=== PATIENT | female | born 1990 ===

== ENCOUNTER 2017-11-11 15:14 | Emergency (ER) | payer BC ==
[2017-11-11 15:27] VITALS: RESP 18
--- NOTE | 2017-11-11 16:39 | ED PDOC ---
HPI: Back Time Seen by Provider: 11/11/17 15:32 Chief Complaint (Nursing): Back Pain Chief Complaint (Provider): back pain History Per: Patient History/Exam Limitations: no limitations Onset/Duration Of Symptoms: Days (x3) Current Symptoms Are (Timing): Still Present Exacerbating Factor(s): Movement Additional Complaint(s): Ana Freed, a 27 year old female with history of pyelonephritis, presents to the emergency department with left sided back pain. Patient describes the pain as sharp and rates it a 7/10. She states that her symptoms are similar to those last year when she had pyelonephritis. Patient reports taking 500mg of Ibuprofen for pain, last dose around 13:30. She states that the pain makes her shake when she walks but denies nausea, vomiting, fever, chills, shortness of breath, cough, abdominal pain, incontinence, urinary symptoms, hematuria, numbness, saddle anesthesia, weakness, or prior injury/surgery to her back. PMD: none Past Medical History Reviewed: Historical Data, Nursing Documentation, Vital Signs Vital Signs: Last Vital Signs Temp 98.2 F 11/11/17 15:25 Pulse 79 11/11/17 15:25 Resp 18 11/11/17 15:25 BP 147/83 11/11/17 15:25 Pulse Ox 99 11/11/17 15:25 - Medical History PMH: No Chronic Diseases Denies: Kidney Stones - Surgical History Surgical History: No Surg Hx - Family History Family History: States: Unknown Family Hx - Home Medications Home Medications: Ambulatory Orders Medication Instructions Recorded Cyclobenzaprine [Cyclobenzaprine 10 mg PO Q8 PRN #12 tab 11/11/17 HCl] Naproxen 500 mg PO BID PRN #20 tab 11/11/17 - Allergies Allergies/Adverse Reactions: Allergies Allergy/AdvReac Type Severity Reaction Status Date / Time No Known Allergies Allergy Verified 11/11/17 15:25 Review of Systems ROS Statement: Except As Marked, All Systems Reviewed And Found Negative Constitutional: Negative for: Fever, Chills Respiratory: Negative for: Cough, Shortness of Breath Gastrointestinal: Negative for: Nausea, Vomiting, Abdominal Pain, Diarrhea Genitourinary Female: Negative for: Incontinence Musculoskeletal: Positive for: Back Pain Neurological: Negative for: Weakness, Numbness Physical Exam - Reviewed Nursing Documentation Reviewed: Yes Vital Signs Reviewed: Yes - Physical Exam Comments: GENERAL APPEARANCE: Patient is awake, alert, oriented x 3, in no acute distress. Resting comfortably. SKIN: Warm, dry; (-) cyanosis. EYES: (-) conjunctival pallor. ENMT: Mucous membranes moist. Airway patent, (-) stridor. NECK: Supple, FROM (-) tenderness, (-) stiffness, (-) lymphadenopathy. CHEST AND RESPIRATORY: (-) rales, (-) rhonchi, (-) wheezes; breath sounds equal bilaterally. Respirations even and nonlabored, speakingin full sentences. HEART AND CARDIOVASCULAR: (-) irregularity ABDOMEN AND GI: Soft; (-) tenderness (-) CVA tenderness (-) distention (-) guarding BACK: (+)bilateral paralumbar tenderness, (-)spasm, (-) direct bony tenderness , (-) deformity. Straight leg raising (-) bilaterally. EXTREMITIES: (-) deformity. Distal pulses good bilaterally. NEURO AND PSYCH: Mental status as above. Intact sensation bilaterally; normal strength in extension of the knees, plantar and dorsiflexion of the toes. Gait: steady. Speech: clear. - Laboratory Results Urine POC: Negative - ECG O2 Sat by Pulse Oximetry: 99 (RA) Pulse Ox Interpretation: Normal Medical Decision Making Medical Decision Making: Time: 15:32 Impression: acute back pain, concern for UTI/pyelonephritis Initial Plan: -- test --ED urine dipstick --Urinalysis --Re-evaluation Upreg: Negative 1755 U/A reviewed (+) hematuria CT abd/pel without contrast ordered to rule out renal colic. 1914 Toradol 30mg IM administered for additional pain control. Pending CT evaluation. [address] 2039 EXAM: CT Abdomen and Pelvis Without Intravenous Contrast CLINICAL HISTORY: 27 years old, female; Pain; Abdominal pain; Generalized; Additional info: R/O renal stone (+) hematuria (+) back/flank pain TECHNIQUE: Axial computed tomography images of the abdomen and pelvis without intravenous contrast. All CT scans at this facility use at least one of these dose optimization techniques: automated exposure control; mA and/or kV adjustment per patient size (includes targeted exams where dose is matched to clinical indication); or iterative reconstruction. COMPARISON: No relevant prior studies available. FINDINGS: Lung bases: Calcified granuloma left lower lobe. ABDOMEN: Liver: Fatty infiltration of the liver. Gallbladder and bile ducts: Probable sludge in the gallbladder. No calcified stones. No ductal dilation. Pancreas: Unremarkable. No ductal dilation. Spleen: Unremarkable. No splenomegaly. Adrenals: Unremarkable. No mass. Kidneys and ureters: Unremarkable. No stones in either kidney or ureter and no hydronephrosis. Stomach and bowel: Unremarkable. No obstruction. No mucosal thickening. PELVIS: Appendix: Normal appendix. Bladder: Unremarkable. No stones. Reproductive: Unremarkable as visualized. ABDOMEN and PELVIS: Intraperitoneal space: Unremarkable. No free air. No significant fluid collection. Bones/joints: No acute fracture. No dislocation. Soft tissues: Unremarkable. Vasculature: Unremarkable. No abdominal aortic aneurysm. Lymph nodes: Unremarkable. No enlarged lymph nodes. IMPRESSION: 1. No stones in either kidney or ureter and no hydronephrosis. 2. Probable sludge in the gallbladder. Thank you for allowing us to participate in the care of your patient. Dictated and Authenticated by: Kin Blount MD 11/11/2017 8:30 PM Eastern Time ([place] & [place]) Diagnostics discussed with patient with demonstrated understanding. Patient states that she is currently spotting and her period is normally irregular. On re-evaluation, patient reports improvement of symptoms. On exam, patient remains AAOx3, in no acute distress. On exam, neck is supple, lungs CTA, cardiac RRR, abdomen is soft and non-tender, neuro exam shows no focal findings. VSS, stable for discharge. Diagnostic results d/w the patient in great detail. Dx of acute back pain, musculoskeletal back pain d/w the patient. Based on history, exam and diagnostic results plan will be for discharge and outpatient follow up. Advised to follow up with primary care physician/PMD in 1-2 days without fail. Advised to take medication as prescribed. Return to the emergency room at any time for any new or worsening symptoms. Patient states she fully agrees with and understands discharge instructions. States that she agrees with the plan and disposition. Verbalized and repeated discharge instructions and plan. I have given the patient opportunity to ask any additional questions. Scribe Attestation: Documented by Nereyda Pineda, acting as a scribe for Ni Hinton PA-C. Provider Scribe Attestation: All medical record entries made by the Scribe were at my direction and personally dictated by me. I have reviewed the chart and agree that the record accurately reflects my personal performance of the history, physical exam, medical decision making, and the department course for this patient. I have also personally directed, reviewed, and agree with the discharge instructions and disposition. Disposition - Clinical Impression Clinical Impression: Acute back pain, Low back pain - Patient ED Disposition Is Patient to be Admitted: No Counseled Patient/Family Regarding: Studies Performed, Diagnosis, Need For Followup, Rx Given - Disposition Referrals: Leobardo Carrera MD [Staff Provider] - [facility] [Outside] Disposition: Routine/Home Disposition Time: 20:42 Condition: STABLE Additional Instructions: The emergency medical care you received today was directed at your acute symptoms. If you were prescribed any medication, please fill it and take as directed. It may take several days for your symptoms to resolve. Return to the Emergency Department if your symptoms worsen, do not improve, or if you have any other problems. Please contact your doctor in 2 days for re-evaluation and follow up / or call one of the physicians/clinics you have been referred to that are listed on the Patient Visit Information form that is included in your discharge packet. Bring any paperwork you were given at discharge with you along with any medications you are taking to your follow up visit. Our treatment cannot replace ongoing medical care by a primary care provider (PCP) outside of the emergency department. Prescriptions: Cyclobenzaprine [Cyclobenzaprine HCl] 10 mg PO Q8 PRN #12 tab PRN Reason: Muscle Spasm Naproxen 500 mg PO BID PRN #20 tab PRN Reason: Pain, Moderate (4-7) Instructions: Low Back Pain in Adults, Muscle Spasms (DC), Muscle and Bone Pain (DC) Forms: [employer] (Italian) Print Language: JAPANESE - POA Present On Arrival: None Results - Lab Results Lab Results: 11/11/17 16:33 Urine Color Yellow Urine Clarity Slighty-cloudy Urine pH 7.0 Ur Specific [place] 1.005 Urine Protein Negative Urine Glucose (UA) Neg Urine Ketones Negative Urine Blood Large Urine Nitrate Negative Urine Bilirubin Negative Urine Urobilinogen 0.2-1.0 Ur Leukocyte Esterase Neg Urine RBC (Auto) 8 H Urine Microscopic WBC 5 Ur Squamous Epith Cells 3 Urine Bacteria Rare
[2017-11-11 16:41] LABS: SQUAMOUS EPITHIAL 3 /hpf (0-5); URINE BACTERIA RARE (<OCC); URINE BILIRUBIN NEGATIVE (NEGATIVE); URINE BLOOD LARGE (NEGATIVE); URINE CLARITY SLIGHTY-CLOUDY (Clear); URINE COLOR YELLOW (YELLOW); URINE GLUCOSE (UA) NEG (Normal); URINE LEUKOCYTE ESTERASE NEG Leu/uL (Negative); URINE PROTEIN NEGATIVE (NEGATIVE); URINE UROBILINOGEN 0.2-1.0 mg/dL (0.2-1.0)
[2017-11-11 20:55] VITALS: BP 124/80; PULSE 60; TEMP 98.5
--- NOTE | 2017-11-12 10:08 | CT ---
Date of service: 11/11/2017 PROCEDURE: CT Abdomen and Pelvis without intravenous contrast HISTORY: r/o renal stone () hematuria () back/flank pain COMPARISON: None. TECHNIQUE: Helical CT of the abdomen and pelvis was performed without oral or intravenous contrast as per referring physician request. Contrast dose: None Radiation dose: Total exam DLP = 866.95 mGy-cm. This CT exam was performed using one or more of the following dose reduction techniques: Automated exposure control, adjustment of the mA and/or kV according to patient size, and/or use of iterative reconstruction technique. FINDINGS: Morbid obesity identified. LOWER THORAX: Unremarkable. LIVER: Lucent liver seen diffusely indicating hepatic steatosis. No gross lesion or ductal dilatation. GALLBLADDER AND BILE DUCTS: Unremarkable. PANCREAS: Unremarkable. No gross lesion or ductal dilatation. SPLEEN: Unremarkable. ADRENALS: Unremarkable. No mass. KIDNEYS AND URETERS: There is no radiodense urolithiasis, obstructive uropathy or perinephric reaction bilaterally. Kidneys appear homogeneous in overall density throughout. Urinary bladder appears unremarkable as well. VASCULATURE: Unremarkable. No aortic aneurysm. BOWEL: Evaluation of the gastrointestinal tract is limited due the lack of oral contrast administration. No bowel obstruction, pericolic or perienteric reaction identified.Stomach is collapsed and is accordingly not well evaluated. APPENDIX: Unremarkable. Normal appendix. PERITONEUM: Unremarkable. No free fluid. No free air. LYMPH NODES: Unremarkable. No enlarged lymph nodes. BLADDER: Unremarkable. REPRODUCTIVE: Unremarkable. BONES: No acute fracture. OTHER FINDINGS: None. IMPRESSION: Hepatic steatosis. No definite acute findings. There is no radiodense urolithiasis, obstructive uropathy or perinephric reaction bilaterally. Kidneys appear homogeneous in overall density throughout. Urinary bladder appears unremarkable as well. Concordant preliminary report from [facility], 11/11/2017.
[2017-11-15 05:03] VITALS: O2SAT 99
== END 2017-11-11 21:01 | disposition home or self-care (01) ==
LOC: H.ER 15:14
DX: M54.5 Low back pain (principal)
CPT/HCPCS: 74176; 81003; 81025; 87086; 96372; 99283; J1885